=== PATIENT | female | born 1955 | race Caucasian/White ===

== ENCOUNTER 2025-05-31 10:48 | Day surgery (SDC) | payer MEDICARE, OTHER, SELFPAY ==
--- NOTE | 2025-05-24 15:22 | PAT.ANESEVAL ---
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 When Was Last Pacemaker Check QUESTION #4 FULL TEXT: You/Your Family Experience fever (hyperthermia) with Anesthesia Last Oral Intake Last Oral intake: Last Oral Intake NPO since Meds taken in AM with sips of water? 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 operator Female Yes 05/24/25 11:53 HX of Motion Sickness No 05/24/25 11:53 HX of N/V After Surgery No 05/24/25 11:53 Non-Smoker Yes 05/24/25 11:53 Duration of Surgery greater Yes 05/24/25 11:53 than 60 minutes Number of Risk Factors 3 05/24/25 11:53 PONV Score Moderate Risk 05/24/25 11:53 Height & Weight Height & Weight: Anesthesia: Height & Weight Height 5 ft 3 in 03/30/25 13:28 Respiratory Assessment Respiratory Assessment - preservative filler machine operator: Respiratory Tract Infection Hx - preservative filler machine operator Hx Respiratory Tract Infection No 05/24/25 11:53 STOP Sleep Apnea STOP Sleep Apnea - preservative filler machine operator: STOP Sleep Apnea - preservative filler machine operator Hx Hypertension No 05/24/25 11:53 Hx Sleep Apnea Yes 05/24/25 11:53 CPAP Yes: NOT WORN FOR MANY YRS 05/24/25 11:53 PER PATIENT BIPAP No 05/24/25 11:53 Do you snore loudly (louder than talking or can be heard Do you often feel tired/ fatigued/ sleepy during daytime? Has anyone observed you stop breathing during sleep? STOP Results Positive 05/24/25 11:53 QUESTION #5 FULL TEXT : Do you snore loudly (louder than talking or can be heard through closed doors)? 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 Specify any problems Hx of Preganancy in last 3 No 05/24/25 11:53 Months Nurse Filling Out Transfusion DSCHRIBER 05/24/25 11:53 & Questions: Date: 05/24/25 05/24/25 11:53 Time: 11:56 05/24/25 11:53 Patient unable to answer at this time (ie. 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 filler machine operator: /Reproductive Hx- preservative filler machine operator Hx Now No 05/24/25 11:53 Gestational Age (in weeks): EDC: Hx Hx Para Hx Section SAB No 05/24/25 11:53 PFSH Medical History (Updated 05/24/25 @ 12:03 by Nika Burnette) Loss of hearing Wears glasses Post-menopausal Cancer Depression Anxiety Bladder disease High cholesterol Seizures History of ulceration Gastric reflux Non-smoker CPAP (continuous positive airway pressure) dependence Shortness of breath on exertion Kidney tumor Lung tumor Arthritis Home Medications ?Medication ?Instructions ?Recorded ?Last Taken ?Type apple cider vinegar 500 mg tablet 2,400 mg PO BID 10/21/23 Unknown History ascorbate calcium (vitamin C) 500 500 mg PO BID 10/21/23 Unknown History mg tablet biotin 10,000 mcg chewable tablet 500 mcg PO BID 10/21/23 Unknown History (Hair, Skin and Nails (biotin)) dandelion root 525 mg capsule 525 mg PO BID 10/21/23 Unknown History fluoxetine 10 mg capsule 40 mg PO QHS 10/21/23 Unknown History hydrocortisone 1 % topical cream 1 applic topical BID PRN skin 10/21/23 Unknown History (Anti-Itch (hydrocortisone)) irritation levetiracetam 500 mg tablet 500 mg PO DAILY 10/21/23 Unknown History levetiracetam 750 mg tablet 750 mg PO QHS 10/21/23 Unknown History lorazepam 0.5 mg tablet 0.5 mg PO DAILY 10/21/23 Unknown History magnesium 250 mg tablet 500 mg PO DAILY 10/21/23 Unknown History methenamine hippurate 1 gram tablet 1 g PO BID 10/21/23 Unknown History omega-3 fatty acids-fish oil 360 1 cap PO DAILY 10/21/23 Unknown History mg-1,200 mg capsule (Fish Oil) risankizumab-rzaa 150 mg/mL 150 mg subcut Q12W 10/21/23 Unknown History subcutaneous pen injector (Skyrizi) rosuvastatin 20 mg tablet 20 mg PO QHS 10/21/23 Unknown History sodium chloride 0.65 % nasal spray 2 spray intranasal Q2H PRN nasal 10/21/23 Unknown History aerosol ([place] Saline) congestion cholecalciferol (vitamin D3) 50 50 mcg PO BID 05/24/25 Unknown History mcg (2,000 unit) capsule (Vitamin D3) lorazepam 0.5 mg tablet 1 mg PO QHS 05/24/25 Unknown History pantoprazole 40 mg tablet,delayed 40 mg PO DAILY 05/24/25 Unknown History release phenytoin 50 mg chewable tablet 100 mg PO DAILY 05/24/25 Unknown History phenytoin 50 mg chewable tablet 200 mg PO QHS 05/24/25 Unknown History phenytoin sodium extended 100 mg 100 mg PO DAILY 05/24/25 Unknown History capsule potassium chloride 20 mEq 20 meq PO BID 05/24/25 Unknown History tablet,extended release(part/cryst) (Klor-Con M) Allergy/AdvReac Type Severity Reaction Status Date / Time ciprofloxacin AdvReac Mild Upset Verified 05/24/25 11:42 Stomach clarithromycin (From Biaxin) AdvReac Mild Upset Verified 05/24/25 11:42 Stomach doxycycline AdvReac Mild Upset Verified 05/24/25 11:42 Stomach Family History Other Anxiety Arthritis Asthma Cancer Depression Diabetes Epilepsy Psychiatric care Seizures Surgical History (Updated 05/24/25 @ 12:03 by Nika Burnette) H/O adenoidectomy Hx of tonsillectomy H/O section H/O: hysterectomy Social History Smoking Status: Never smoker alcohol intake: never substance use type: does not use additional social history: pt denies vaping, pt denies marijuana use, pt denies edibles, pt denies aspirin, denies illegal drugs, denies alcohol use pt uses ibuprofen as needed. Audit: Pertinent Findings Pertinent Findings EKG Perinent findings: May 18, 2025. Sinus rhythm. Marked left axis deviation, consistent with left anterior fascicular block. Recommendation Anesthesia Recommendation Anesthesia recommendation: OPTIMIZED for anesthesia
[2025-05-31] VITALS (15 sets, daily range): BP systolic 113–136; BP diastolic 53–84; PULSE 66–84; RESP 14–18; TEMP 36.3–37.1; O2SAT 90–98; BMI 34.0; BMI 33.8
[2025-05-31] MEDS: Lactated Ringers 1,000 ML 15 ML IV (11:00)
[2025-05-31 11:36] LABS: Partial Thromboplast Time 26.5 Seconds (24.1-36.2)
--- NOTE | 2025-05-31 11:50 | PCM.PRE.AN2 ---
ASA Classification* ASA Classification ASA Classification: 3 Assessment & Plan Anesthesia* Anesthesia Assessment Anesthesia Assessment: Discussed sedation and/or anesthesia options, risks, benefits, and alternatives with patient/parents/legal guardian/POA. Questions invited. The patient/parents/legal guardian/POA seems to understand and agrees to proceed with anesthesia plan. Reviewed the physical assessment, medical history, allergy history and patient home medications list prior to surgery/procedure/anesthetic and documented any changes. Performed airway and anesthesia risk assessments. 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 When Was Last Pacemaker Check QUESTION #4 FULL TEXT: You/Your Family Experience fever (hyperthermia) with Anesthesia Last Oral Intake Last Oral intake: Last Oral Intake NPO since 00:00 05/31/25 11:25 Meds taken in AM with sips of Yes 05/31/25 11:25 water? Meds patient instructed to take am of surgery PONV PONV - industrial energy engineer: PONV - industrial energy engineer Female Yes 05/24/25 11:53 HX of Motion Sickness No 05/24/25 11:53 HX of N/V After Surgery No 05/24/25 11:53 Non-Smoker Yes 05/24/25 11:53 Duration of Surgery greater Yes 05/24/25 11:53 than 60 minutes Number of Risk Factors 3 05/24/25 11:53 PONV Score Moderate Risk 05/24/25 11:53 Height & Weight Height & Weight: Anesthesia: Height & Weight Height 5 ft 3 in 05/31/25 11:25 Weight: 87 kg 05/31/25 11:25 Body Mass Index (BMI) 34.0 05/31/25 11:25 Respiratory Assessment Respiratory Assessment - industrial energy engineer: Respiratory Tract Infection Hx - industrial energy engineer Hx Respiratory Tract Infection No 05/24/25 11:53 STOP Sleep Apnea STOP Sleep Apnea - industrial energy engineer: STOP Sleep Apnea - industrial energy engineer Hx Hypertension No 05/24/25 11:53 Hx Sleep Apnea Yes 05/24/25 11:53 CPAP Yes: NOT WORN FOR MANY YRS 05/24/25 11:53 PER PATIENT BIPAP No 05/24/25 11:53 Do you snore loudly (louder than talking or can be heard Do you often feel tired/ fatigued/ sleepy during daytime? Has anyone observed you stop breathing during sleep? STOP Results Positive 05/24/25 11:53 QUESTION #5 FULL TEXT : Do you snore loudly (louder than talking or can be heard through closed doors)? 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 Specify any problems Hx of Preganancy in last 3 No 05/24/25 11:53 Months Nurse Filling Out Transfusion DSCHRIBER 05/24/25 11:53 & Questions: Date: 05/24/25 05/24/25 11:53 Time: 11:56 05/24/25 11:53 Patient unable to answer at this time (ie. confused, unrespo /Reproduction History /Reproductive History - industrial energy engineer: /Reproductive Hx- industrial energy engineer Hx Now No 05/24/25 11:53 Gestational Age (in weeks): EDC: Hx Hx Para Hx Section SAB No 05/24/25 11:53 Active Medications Active Medications: Current Medications Generic Name Dose Route Start Last Admin Trade Name Freq PRN Reason Stop Dose Admin Lactated Ringer's 1,000 mls @ 15 mls/hr 05/31/25 11:00 IV .Q48H PAT PFSH Medical History (Updated 05/24/25 @ 12:03 by Nika Burnette) Loss of hearing Wears glasses Post-menopausal Cancer Depression Anxiety Bladder disease High cholesterol Seizures History of ulceration Gastric reflux Non-smoker CPAP (continuous positive airway pressure) dependence Shortness of breath on exertion Kidney tumor Lung tumor Arthritis Home Medications ?Medication ?Instructions ?Recorded ?Last Taken ?Type apple cider vinegar 500 mg tablet 2,400 mg PO BID 10/21/23 05/30/25 History ascorbate calcium (vitamin C) 500 500 mg PO BID 10/21/23 05/30/25 History mg tablet biotin 10,000 mcg chewable tablet 500 mcg PO BID 10/21/23 05/30/25 History (Hair, Skin and Nails (biotin)) dandelion root 525 mg capsule 525 mg PO BID 10/21/23 05/30/25 History fluoxetine 10 mg capsule 40 mg PO QHS 10/21/23 05/30/25 History levetiracetam 500 mg tablet 500 mg PO DAILY 10/21/23 05/31/25 History levetiracetam 750 mg tablet 750 mg PO QHS 10/21/23 05/30/25 History lorazepam 0.5 mg tablet 0.5 mg PO DAILY 10/21/23 05/30/25 History magnesium 250 mg tablet 500 mg PO DAILY 10/21/23 Unknown History methenamine hippurate 1 gram tablet 1 g PO BID 10/21/23 05/30/25 History omega-3 fatty acids-fish oil 360 1 cap PO DAILY 10/21/23 05/30/25 History mg-1,200 mg capsule (Fish Oil) risankizumab-rzaa 150 mg/mL 150 mg subcut Q12W 10/21/23 Unknown History subcutaneous pen injector (Skyrizi) rosuvastatin 20 mg tablet 20 mg PO QHS 10/21/23 05/30/25 History sodium chloride 0.65 % nasal spray 2 spray intranasal Q2H PRN nasal 10/21/23 Unknown History aerosol ([place] Saline) congestion cholecalciferol (vitamin D3) 50 50 mcg PO BID 05/24/25 05/30/25 History mcg (2,000 unit) capsule (Vitamin D3) lorazepam 0.5 mg tablet 1 mg PO QHS 05/24/25 05/30/25 History pantoprazole 40 mg tablet,delayed 40 mg PO DAILY 05/24/25 05/30/25 History release phenytoin 50 mg chewable tablet 100 mg PO DAILY 05/24/25 05/31/25 History phenytoin 50 mg chewable tablet 200 mg PO QHS 05/24/25 05/30/25 History phenytoin sodium extended 100 mg 100 mg PO DAILY 05/24/25 05/30/25 History capsule potassium chloride 20 mEq 20 meq PO BID 05/24/25 05/30/25 History tablet,extended release(part/cryst) (Klor-Con M) Allergy/AdvReac Type Severity Reaction Status Date / Time ciprofloxacin AdvReac Mild Upset Verified 05/31/25 11:22 Stomach clarithromycin (From Biaxin) AdvReac Mild Upset Verified 05/31/25 11:22 Stomach doxycycline AdvReac Mild Upset Verified 05/31/25 11:22 Stomach Family History Other Anxiety Arthritis Asthma Cancer Depression Diabetes Epilepsy Psychiatric care Seizures Surgical History (Updated 05/24/25 @ 12:03 by Nika Burnette) H/O adenoidectomy Hx of tonsillectomy H/O section H/O: hysterectomy Social History Smoking Status: Never smoker alcohol intake: never substance use type: does not use additional social history: pt denies vaping, pt denies marijuana use, pt denies edibles, pt denies aspirin, denies illegal drugs, denies alcohol use pt uses ibuprofen as needed. Review of Systems (Anesthesia) ROS Narrative System reviewed and no additional complaints, except as documented.
--- NOTE | 2025-05-31 12:05 | PCM.HP.STD ---
HPI - General HPI Narrative NAHOMY GUTIERREZ, is a 70 F who presents for a panniculectomy Current Encounter (DATE OF SURGERY H&P UPDATE): I saw and examined the patient this morning in pre-operative holding. We discussed risks and benefits of today's surgery and they would like to proceed. NO CHANGE in health history since last seen and evaluated. Ready to proceed with surgery. I reviewed the CT scan from March 2025 I did not see a visible hernia. The read from the CT scan also did not comment on any hernias. [facility] Medical History Loss of hearing Wears glasses Post-menopausal Cancer Depression Anxiety Bladder disease High cholesterol Seizures History of ulceration Gastric reflux Non-smoker CPAP (continuous positive airway pressure) dependence Shortness of breath on exertion Kidney tumor Lung tumor Arthritis Home Medications ?Medication ?Instructions ?Recorded ?Last Taken ?Type apple cider vinegar 500 mg tablet 2,400 mg PO BID 10/21/23 05/30/25 History ascorbate calcium (vitamin C) 500 500 mg PO BID 10/21/23 05/30/25 History mg tablet biotin 10,000 mcg chewable tablet 500 mcg PO BID 10/21/23 05/30/25 History (Hair, Skin and Nails (biotin)) dandelion root 525 mg capsule 525 mg PO BID 10/21/23 05/30/25 History fluoxetine 10 mg capsule 40 mg PO QHS 10/21/23 05/30/25 History levetiracetam 500 mg tablet 500 mg PO DAILY 10/21/23 05/31/25 History levetiracetam 750 mg tablet 750 mg PO QHS 10/21/23 05/30/25 History lorazepam 0.5 mg tablet 0.5 mg PO DAILY 10/21/23 05/30/25 History magnesium 250 mg tablet 500 mg PO DAILY 10/21/23 Unknown History methenamine hippurate 1 gram tablet 1 g PO BID 10/21/23 05/30/25 History omega-3 fatty acids-fish oil 360 1 cap PO DAILY 10/21/23 05/30/25 History mg-1,200 mg capsule (Fish Oil) risankizumab-rzaa 150 mg/mL 150 mg subcut Q12W 10/21/23 Unknown History subcutaneous pen injector (Skyrizi) rosuvastatin 20 mg tablet 20 mg PO QHS 10/21/23 05/30/25 History sodium chloride 0.65 % nasal spray 2 spray intranasal Q2H PRN nasal 10/21/23 Unknown History aerosol ([place] Saline) congestion cholecalciferol (vitamin D3) 50 50 mcg PO BID 05/24/25 05/30/25 History mcg (2,000 unit) capsule (Vitamin D3) lorazepam 0.5 mg tablet 1 mg PO QHS 05/24/25 05/30/25 History pantoprazole 40 mg tablet,delayed 40 mg PO DAILY 05/24/25 05/30/25 History release phenytoin 50 mg chewable tablet 100 mg PO DAILY 05/24/25 05/31/25 History phenytoin 50 mg chewable tablet 200 mg PO QHS 05/24/25 05/30/25 History phenytoin sodium extended 100 mg 100 mg PO DAILY 05/24/25 05/30/25 History capsule potassium chloride 20 mEq 20 meq PO BID 05/24/25 05/30/25 History tablet,extended release(part/cryst) (Klor-Con M) Allergy/AdvReac Type Severity Reaction Status Date / Time ciprofloxacin AdvReac Mild Upset Verified 05/31/25 11:22 Stomach clarithromycin (From Biaxin) AdvReac Mild Upset Verified 05/31/25 11:22 Stomach doxycycline AdvReac Mild Upset Verified 05/31/25 11:22 Stomach Family History Other Anxiety Arthritis Asthma Cancer Depression Diabetes Epilepsy Psychiatric care Seizures Surgical History H/O adenoidectomy Hx of tonsillectomy H/O section H/O: hysterectomy Social History Smoking Status: Never smoker alcohol intake: never substance use type: does not use additional social history: pt denies vaping, pt denies marijuana use, pt denies edibles, pt denies aspirin, denies illegal drugs, denies alcohol use pt uses ibuprofen as needed. 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 There is a right lower lateral abdominal scar from previous kidney surgery. There is an infraumbilical laparotomy scar. No hernias detected upon my examination. Results Lab / Micro Data Labs: Laboratory Results - last 24 hr 05/31/25 11:15: APTT 26.5 Assessment & Plan Assessment/Plan (1) Panniculitis: PLAN: INTERVAL H&P PLAN, DATE OF SURGERY: We will proceed with surgery today. I talked to the patient extensively today in preoperative holding while I marked her. We marked her for a transverse panniculectomy with possible umbilicus transposition, possible vertical component. I talked to her about wound healing problems and potential for staging portions of the procedure as she has a significant deformity and may have severe wound healing complications if too much is resected/it is too tight. She was in agreement with conservative approach. I talked to the patient again today extensively about the risks of surgery, including bleeding, infection, damage to surrounding structures, poor scaring, asymmetry, the anticipated residual skin/fat on the abdomen and persistent deformity, surgical site dehiscence and wound formation, abdominal necrosis, need for wound care, need for repeat operations, failure to obtain the desired result, DVT/PE, and the risks of anesthesia including , including stroke (from low blood pressure/ischemia or clot). The benefits and alternatives of this surgery were also discussed. All of their questions were answered, and they agreed to proceed with surgery.
[2025-05-31] MEDS: Midazolam 2 MG/2 ML Syringe IV (12:17)
[2025-05-31] MEDS: Lidocaine 1% (5 ml sdv) 5 ML Vial IV (12:21)
[2025-05-31] MEDS: Cefazolin 1 GM/5 ML Vial 2 GM IV (12:30)
[2025-05-31] MEDS: Lidocaine 1% /Epi 1:100 (20ml) 20 ML Vial (12:55)
[2025-05-31] MEDS: Bupiv/Epi 0.25% 30 ML Vial (12:55)
[2025-05-31] MEDS: fentaNYL 100 MCG/2 ML Ampul IV (13:14)
[2025-05-31] MEDS: Lactated Ringers 1,000 ML 999 ML IV (15:15)
--- NOTE | 2025-05-31 15:17 | PCM.POST.ANE ---
Anesthesia: Postop Eval I Current Vital Signs Temperature: 97.3 F Pulse Rate: 84 Blood Pressure: 122/56 Respiratory Rate: 16 Pulse Ox: 95 Oxygen Delivery Method: Room Air Assessment Airway patent: Yes Spontaneous unlabored respirations: Yes Mental status: Awake and Calm nausea: No Vomiting: No Anesthesia Complication: No Fluid Hydration Crystalloid volume administer (ml): 2,000 (finishing up last of 2 L per request per Dr. Matthews) Total IV fluid infused: 2,000 Progress Note Anesthesia document: Postop Eval 1 completed: Yes
--- NOTE | 2025-05-31 15:33 | OP.PCM_ITS ---
Operative Report (Standard) Operative Information Date of Procedure: 05/31/25 Pre-Operative Diagnosis: Massive weight loss with large abdominal pannus Post-Operative Diagnosis: Same Surgery/Procedure Performed: Panniculectomy (transverse) advertising photographer: Yes Administrative Assistant Office Manager: Chandrika Paredes Tasks completed by patent legal assistant: Retracting Type of Anesthesia: General/Supplemental (40 cc of a 50-50 mixture of 1% lidocaine with 1-200,000 epinephrine and quarter percent Marcaine with 1-200,000 epinephrine) RN Documented Start/Stop Times: Operation Date: 05/31/25 12:30 Case Time Into Pre-Op 05/31/25 10:57 Anesthesia Start 05/31/25 12:16 Into Room 05/31/25 12:16 Out of Pre-Op 05/31/25 12:16 Procedure Start 05/31/25 12:55 Procedure End 05/31/25 15:04 Anesthesia End 05/31/25 15:11 Out of Room 05/31/25 15:11 Into Recovery 05/31/25 15:16 Procedure Start Time: 12:55 Procedure Stop Time: 15:04 Select all DRAINS/GRAFTS/IMPLANTS that apply: Drains (To 19 Burkinan Chavo drains) Drain details: Tunneled out laterally Estimated Blood Loss: 500 cc Specimen collected: No Description of surgery: Indications: Patient is a delightful 70-year-old female with history of severe rash and irritation in the abdominal region secondary to a large pannus/abdominal apron after massive weight loss. I discussed with her the risks, benefits, and alternatives to the procedure, and she elected to proceed. Procedure details: Patient was clearly identified in preoperative holding and marked. She is taken back to the operating room where she was administered general anesthesia and prepped and draped in sterile fashion. All proper timeouts were performed. 10 blade scalpel was used to incise the skin on the inferior abdomen below the pannus up to the level of the ASIS bilaterally and extending lateral to the ASIS to just beyond the midaxillary line. Bovie electrocautery was used to dissect down to the abdominal wall. Care was taken to preserve fat over the ASIS and the hips, so as to protect the nerves including the lateral femoral cutaneous nerve. Dissection was carried out superiorly along the abdominal wall to the level just below the umbilicus. Any large perforating vessels were tied with silk ties. The pannus was then advanced inferiorly in a safe amount of resection was determined by overlapping it with the lower incision. An ellipse was then designed with a marking pen, and cut with a 10 blade scalpel. Dissection was again taken down with Bovie electrocautery and the ellipse was excised and weighed 9.1 pounds (mass of 4.1 kg). 2 separate 19 [place] Chavo drains were then placed and tunneled out laterally. Wound was irrigated with copious amounts normal saline and Irrisept. Hemostasis was obtained with Bovie electrocautery and thrombin topical agent. Kadie's fascia was then closed with 2-0 Vicryl interrupted deep sutures, and the skin was then closed with 3-0 Monocryl deep dermal sutures followed by 3-0 Monocryl running subcuticular sutures. The drains were holding suction at the end of the case. The umbilicus was kept in position and just moved with the upper abdomen as it was advanced inferiorly (no cuts around the umbilicus). Patient tolerated the procedure well. She was awakened taken the PACU in stable condition. Postoperative plan: Admission for postoperative monitoring. Edwards was removed at the end of the case. CBC in the a.m. and early ambulation tonight around dinnertime to prevent blood clots (SCDs to be on and activated). Anticipate likely discharge in the morning. Surgical Findings: Able to remove 9 pounds of pannus Complications Complications: No
[2025-05-31] MEDS: Lactated Ringers 1,000 ML 75 ML IV (16:25)
--- NOTE | 2025-05-31 18:10 | POSTOPAN2_ITS ---
Anesthesia Postop Eval I Sum Postop Eval Completion status Anesthesia document: Postop Eval 1 completed: Yes Anesthesia Postop Eval I Summary Anesthesia Postop Eval I Summary: Anesthesia Postop Eval I: Assessment Summary Airway patent Yes 05/31/25 15:18 SOLAR PROJECT [email or web address] Spontaneous unlabored Yes 05/31/25 15:18 SOLAR PROJECT [email or web address] respirations Mental status Awake,Calm 05/31/25 15:18 SOLAR PROJECT [email or web address] nausea No 05/31/25 15:18 SOLAR PROJECT MANAGER.[email or web address] Vomiting No 05/31/25 15:18 SOLAR PROJECT [email or web address] Anesthesia Postop Eval I: Fluid Summary Crystalloid volume administer 2,000 - finishing 05/31/25 15:18 SOLAR PROJECT [email or web address] (ml) up last of 2 L per request per Dr. Matthews Colloids volume administered ( ml) Blood Product volume administered (ml) Total IV fluid infused 2,000 05/31/25 15:18 SOLAR PROJECT MANAGER.[email or web address] Anesthesia Postop Eval I: Summary Notes Anesthesia Complication No 05/31/25 15:18 SOLAR PROJECT MANAGER.KEYANA Anesthesia Complication Comment: Post-operative progress note Anesthesia: Postop Eval II Evaluation Mental status: Awake Pain Level: 0 nausea: No Vomiting: No Complications Anesthesia Complication: No
--- NOTE | 2025-05-31 18:10 | PCM.POSTANE2 ---
Anesthesia Postop Eval I Sum Postop Eval Completion status Anesthesia document: Postop Eval 1 completed: Yes Anesthesia Postop Eval I Summary Anesthesia Postop Eval I Summary: Anesthesia Postop Eval I: Assessment Summary Airway patent Yes 05/31/25 15:18 ELEMENTARY SCHOOL [email or web address] Spontaneous unlabored Yes 05/31/25 15:18 ELEMENTARY SCHOOL COUNSELOR.[email or web address] respirations Mental status Awake,Calm 05/31/25 15:18 ELEMENTARY SCHOOL [email or web address] nausea No 05/31/25 15:18 ELEMENTARY SCHOOL COUNSELOR.[email or web address] Vomiting No 05/31/25 15:18 ELEMENTARY SCHOOL COUNSELOR.[email or web address] Anesthesia Postop Eval I: Fluid Summary Crystalloid volume administer 2,000 - finishing 05/31/25 15:18 ELEMENTARY SCHOOL [email or web address] (ml) up last of 2 L per request per Dr. Matthews Colloids volume administered ( ml) Blood Product volume administered (ml) Total IV fluid infused 2,000 05/31/25 15:18 ELEMENTARY SCHOOL COUNSELOR.KEYANA Anesthesia Postop Eval I: Summary Notes Anesthesia Complication No 05/31/25 15:18 ELEMENTARY SCHOOL COUNSELOR.[email or web address] Anesthesia Complication Comment: Post-operative progress note Anesthesia: Postop Eval II Evaluation Mental status: Awake Pain Level: 0 nausea: No Vomiting: No Complications Anesthesia Complication: No
[2025-05-31] MEDS: Cefazolin 2 GM in 0.9% Normal Saline (100mL Bag) 100 ML IV (21:53)
[2025-05-31] MEDS: Phenytoin Na 100 MG Capsule 200 MG PO (21:53)
[2025-06-01] MEDS: Lactated Ringers 1,000 ML 75 ML IV ×2 (03:37→16:13)
[2025-06-01 04:32] VITALS: BP 132/50; PULSE 90; RESP 16; TEMP 37.1; O2SAT 95
[2025-06-01] MEDS: Cefazolin 2 GM in 0.9% Normal Saline (100mL Bag) 100 ML IV ×3 (05:40→21:42)
[2025-06-01 07:31] LABS: Hematocrit 37.3 % (37-47); Hemoglobin 12.4 g/dL (12.0-15.0); Immature Granulocytes Count 0.040 X10^3/uL (0.0-0.0); Mean Corp Hgb Conc 33.2 g/dL (32-36); Mean Corpuscular Volume 95.4 fL (81-99); Mean Platelet Vol. 11.0 fl (6.2-12.0); NRBC Flagged by Analyzer 0 % (0-5); POSITIVE DIFFERENTIAL YES; Platelet Count 110 K/mm3 (150-450); RBC Distribution Width CV 12.7 % (11.6-14.6); RBC Distribution Width SD 43.9 fl (35.1-43.9); Red Blood Count 3.91 M/mm3 (4.2-5.4); White Blood Count 12.3 K/mm3 (4.4-11.0)
[2025-06-01 07:59] VITALS: BP 112/59; PULSE 88; RESP 17; TEMP 36.9; O2SAT 95
[2025-06-01 08:08] LABS: Anion Gap 9 (5-15); BUN 17 mg/dL (4-19); BUN/Creat Ratio 18.5 RATIO (10-20); Calcium,Total 8.3 mg/dL (7.6-11.0); Carbon Dioxide 22.9 mmol/L (21.0-32.0); Chloride 106 mmol/L (98-108); Estimated Creatinine Clearance 59.84 ml/min (50-250); Glucose 113 mg/dL (70-99); Potassium 4.4 mmol/L (3.3-5.1)
--- NOTE | 2025-06-01 08:09 | PN.SURG_ITS ---
Subjective Subjective Doing well overall this AM. No N/v She has significant pain while walking, requiring pain medications. Objective Data Objective Data Vital Signs: Vital Signs Temp Pulse Resp BP Pulse Ox O2 Del Method 98.4 F 88 17 112/59 L 95 Room Air 06/01/25 07:59 06/01/25 07:59 06/01/25 07:59 06/01/25 07:59 06/01/25 07:59 06/01/25 07:59 Oxygen Delivery Method Room Air Weight: 191 lb 1.326 oz Body Mass Index (BMI) 33.8 Intake & Output: Intake and Output for Last 24 Hours 05/30/25 05/31/25 06/01/25 23:59 23:59 23:59 Intake Total 869.75 / 869.75 950 / 950 Output Total 750 / 750 40 / 40 Balance 119.75 / 119.75 910 / 910 Lab / Micro Data 06/01/25 06:29 06/01/25 06:29 Labs: Laboratory Results - last 24 hr 05/31/25 11:15: APTT 26.5 06/01/25 06:29: WBC 12.3 H, RBC 3.91 L, Hgb 12.4, Hct 37.3, MCV 95.4, MCH 31.7, MCHC 33.2, RDW Std Deviation 43.9, RDW Coeff of [place]ito 12.7, Plt Count 110 L, MPV 11.0, Immature Gran % (Auto) 0.300, Neut % (Auto) 87.9 H, Lymph % (Auto) 3.0 L, [place] % (Auto) 8.1, Eos % (Auto) 0.6, Baso % (Auto) 0.1, Absolute Neuts (auto) 10.8 H, Absolute Lymphs (auto) 0.37 L, Nucleated RBC % 0, Sodium 138, Potassium 4.4, Chloride 106, Carbon Dioxide 22.9, Anion Gap 9, BUN 17, Creatinine 0.90, Estim Creat Clear Calc 59.84, Est GFR (MDRD) Non-Af 68, BUN/Creatinine Ratio 18.5, Glucose 113 H, Calcium 8.3 Physical Exam Narrative Abdomen: Soft, no hematoma. Incision c/d/i. KELLY drains are SS. Const alert and oriented x3 Resp normal respiratory effort Resp Narrative: 1250 in IS this morning Extremity Extremity Narrative: No calf swelling SCDs on and activated Assessment & Plan Assessment/Plan (1) S/P panniculectomy: PLAN: Continue medications for pain control Plan for PT today Continue to ambulate with assistance Likely DC tomorrow (needs to move better before DC and have better pain control)
[2025-06-01] MEDS: Phenytoin Na 100 MG Capsule PO (10:35)
--- NOTE | 2025-06-01 11:08 | CASEMGMT ---
Addendum entered by Terri Hall 06/01/25 11:23: The Bow Making Machine Operator AD rack card was provided to the patient. Patient was informed she can call the hospital and receive assist with completing this information. Original Note: Social Work SW spoke with the patient in her room regarding LW/POA. Patient reported she has POA and LW paperwork but she cannot find it. Patient plans on looking for it. Patient was provided with blank LW/POA paperwork in case she can find it. RAMSES Batista
[2025-06-01 14:01] VITALS: BP 108/52; PULSE 88; RESP 17; TEMP 36.9; O2SAT 97
[2025-06-01 20:49] VITALS: BP 107/50; PULSE 74; RESP 16; TEMP 36.4; O2SAT 97
[2025-06-01] MEDS: Phenytoin Na 100 MG Capsule 200 MG PO (21:42)
[2025-06-02 02:11] VITALS: BP 117/60; PULSE 71; RESP 18; TEMP 36.4; O2SAT 99
[2025-06-02] MEDS: Cefazolin 2 GM in 0.9% Normal Saline (100mL Bag) 100 ML IV (05:37)
[2025-06-02] MEDS: Lactated Ringers 1,000 ML 75 ML IV (05:38)
--- NOTE | 2025-06-02 07:29 | DS.PCM_ITS ---
Providers Primary Care Physician: Jamison Squires FOLDING MACHINE SETTER-C Reason For Visit: Romina panniculectomy Diagnosis Discharge Diagnosis (1) S/P panniculectomy: Status: Acute Code(s): Z98.890 - Other specified postprocedural states Plan: Continue medications for pain control Plan for PT today Continue to ambulate with assistance Likely DC tomorrow (needs to move better before DC and have better pain control) Medications at Discharge Home Medications apple cider vinegar 500 mg tablet 2,400 mg PO BID 10/21/23 ascorbate calcium (vitamin C) 500 mg tablet 500 mg PO BID 10/21/23 biotin 10,000 mcg chewable tablet (Hair, Skin and Nails (biotin)) 500 mcg PO BID 10/21/23 dandelion root 525 mg capsule 525 mg PO BID 10/21/23 fluoxetine 10 mg capsule 40 mg PO QHS 10/21/23 levetiracetam 500 mg tablet 500 mg PO DAILY 10/21/23 levetiracetam 750 mg tablet 750 mg PO QHS 10/21/23 lorazepam 0.5 mg tablet 0.5 mg PO DAILY 10/21/23 magnesium 250 mg tablet 500 mg PO DAILY 10/21/23 methenamine hippurate 1 gram tablet 1 g PO BID 10/21/23 omega-3 fatty acids-fish oil 360 mg-1,200 mg capsule (Fish Oil) 1 cap PO DAILY 10/21/23 risankizumab-rzaa 150 mg/mL subcutaneous pen injector (Skyrizi) 150 mg subcut Q12W 10/21/23 rosuvastatin 20 mg tablet 20 mg PO QHS 10/21/23 sodium chloride 0.65 % nasal spray aerosol ([place] Saline) 2 spray intranasal Q2H PRN nasal congestion 10/21/23 cholecalciferol (vitamin D3) 50 mcg (2,000 unit) capsule (Vitamin D3) 50 mcg PO BID 05/24/25 lorazepam 0.5 mg tablet 1 mg PO QHS 05/24/25 pantoprazole 40 mg tablet,delayed release 40 mg PO DAILY 05/24/25 phenytoin 50 mg chewable tablet 100 mg PO DAILY 05/24/25 phenytoin 50 mg chewable tablet 200 mg PO QHS 05/24/25 phenytoin sodium extended 100 mg capsule 100 mg PO DAILY 05/24/25 potassium chloride 20 mEq tablet,extended release(part/cryst) (Klor-Con M) 20 meq PO BID 05/24/25 oxycodone 5 mg tablet 5 mg PO Q12H PRN pain 5 days #10 tabs 06/02/25 Hospital Course Summary of Care Provided Hospital Course: Patient underwent panniculectomy on 31 May 2025. Did well post-operatively. PT recommended could go home with assistance on POD1. Patient lives at home with . Feels comfortable going home. Pain was controlled with PO pain medications. Hgb 12 on POD 1, stable VS, afebrile. On the date of discharge (POD2), patient reported adequate pain control and was comfortable taking care of her drains and going home. She was passing flatus and eating/drinking well (no N/V). Physical Exam Narrative Consistently 1500cc on IS. Normal respiratory effort Abdomen: Soft, incision c/d/i. No hematoma. Drains SS. Appropriate output. Extremities: SCDs on and activated, no swelling in the legs/thighs Weight / BMI Weight Weight: 191 lb 1.326 oz Body Mass Index (BMI) 33.8 ABG / Lab / Microbiology Data 06/01/25 06:29 06/01/25 06:29 Laboratory: Laboratory Results - last 24 hr 06/01/25 06:29: WBC 12.3 H, RBC 3.91 L, Hgb 12.4, Hct 37.3, MCV 95.4, MCH 31.7, MCHC 33.2, RDW Std Deviation 43.9, RDW Coeff of [place]ito 12.7, Plt Count 110 L, MPV 11.0, Immature Gran % (Auto) 0.300, Neut % (Auto) 87.9 H, Lymph % (Auto) 3.0 L, [place] % (Auto) 8.1, Eos % (Auto) 0.6, Baso % (Auto) 0.1, Absolute Neuts (auto) 10.8 H, Absolute Lymphs (auto) 0.37 L, Nucleated RBC % 0, Sodium 138, Potassium 4.4, Chloride 106, Carbon Dioxide 22.9, Anion Gap 9, BUN 17, Creatinine 0.90, Estim Creat Clear Calc 59.84, Est GFR (MDRD) Non-Af 68, BUN/Creatinine Ratio 18.5, Glucose 113 H, Calcium 8.3 D/C Instructions DC O2, CPAP, BIPAP Needs Home O2 Discharge instructions: No Meaningful Use Info Meaningful Use Meaningful Use Diagnoses (Choose all that apply): None applicable Discharge Plan Admission Attending Provider: Yusuf Matthews Primary Care Provider: Jamison Squires Instructions Additional Instructions / Restrictions: Operations Performed: panniculectomy Instructions for My Care at Home or Healthcare Facility The following instructions will help you know what to expect in the days following surgery. These are general instructions. Your surgeon and therapist may give you special instructions, which vary to some degree based on your specific procedure -- follow those as directed. Do not, however, hesitate to call if you have any questions or concerns. Splint Care/Dressing Care/Wound Care * Dressings - You may have a dressing over the operative site. * Use the binder to hold pads on as needed or when ambulating for comfort * Avoid smoking or other tobacco products. Smoking tobacco impairs wound healing and increases the risks of post-operative complications. * Tape over your incisions (if present) will fall off on its own Activities Make sure to walk frequently to prevent blood clots * For the first 4 weeks after surgery, try to balance your activity, allowing time for rest. * Avoid lifting, pushing, or pulling anything over 5 pounds. * Do not drive or operate heavy machinery within 24 hrs of surgery or while taking narcotic pain medication.? Pain Control/Medications * If you received an anesthetic block, your hand or arm may be numb for several hours. You will be discharged to home with medications, including an oral pain medication (analgesic). Rest and elevation are still one of the most important factors for pain control. Take your pain medication as needed, but do not wait for the pain to become out of control. * For severe pain, you may take prescription pain medication as directed, but please note that this may also contain Tylenol (e.g. Percocet). Do not take more than 4000mg of Tylenol (acetaminophen) from all sources daily.? * Pain medication may cause some lethargy, nausea, and or constipation. You should not drive/operate dangerous machinery while taking these medications. If these or other symptoms become significantly problematic, please your surgeon's office. * If prescribed oral antibiotics (Keflex, Clindamycin, or others), please take prescription for full duration as instructed. You should not have any pills remaining once completed (refills are written for your convenience should the course need to be extended, but generally they are not required). Diet (what I can eat): Resume normal diet Follow up * You will be seen (most likely) 1 to 2 weeks after surgery depending on the procedure. Follow-up appointment reminders:? (A list of any scheduled appointments is at the end of this document)? At your earliest convenience, please call [phone] to confirm/schedule a follow-up appointment with me in clinic. When to call your surgeon: * If any signs of surgical site infection develop: redness, pus, pain, increased swelling or foul odor at the incision site, fever, cold and clammy skin, or confusion. * Consistent temperature above 101?F (38.3?C). * The affected area gets swollen or much more painful. * You have excessive bleeding from surgical site (soaking through). If you experience difficulty breathing and/or shortness of breath, seek immediate medical attention. If experiencing any of the above complications or if you have any questions, call [phone] Drain Care:? A drain has been placed during surgery in order to prevent the accumulation of fluids beneath your skin. The drain decreases the chance of infection and helps in the healing process. The nursing staff will instruct you and your family on the care and recording of drainage. ? * You may shower with them. Let soap and water run down over drains, rinse and pat dry with clean towel. Reinforce with gauze or ABD pad around drain site if leaking occurs around the drain; this is not unusual.?Hold drains in your hand or attach to lanyard (or string) around your neck with safety pin so they do not hang from your body (the tension on your skin may cause them to be pulled out) while your are showering. * The drains are attached to you with suture. If your drain(s) falls out accidentally, place a clean piece of gauze over the drain site with tape and discard your drain.? * If your drain bulb loses suction or your drain has migrated out from the drain site, do not attempt to push the drain back into your skin. Cover the area with dry gauze. You may be asked by your surgeon to place a piece of semi occlusive dressing (tegaderm) over the drain site to keep the site clean and drain in place until you are seen in the office.? * When you are wearing clothes, attach drains to your clothes in a place where there is minimal/no tension on the insertion site to your skin.? * You should empty the drainage and record the output at least 2 times per day, or when the drainage fills the bulb almost chcf. Please keep daily amounts of drainage separate for each drain for a 24-hour period (for example drain #1 put out 40 mL for 24 hours).? * Strip your drains daily as shown to you by your nurse prior to discharge to avoid them from becoming clogged:? * Wash your hands. * Strip tubing three times a day (more often if there are a lot of blood clots). * Grasp tubing close to body with one hand and pull toward body. With other hand grasp tubing below the first hand. Using an alcohol swab, pinch tubing tightly, sliding fingers down tubing, away from body. * Repeat 2 or 3 times. Be sure drainage is flowing into bulbs. * Measure the drainage in the bulb by either using the calibrations on the bulb or by emptying the Bulb into small measuring container 3 times a day (more often if there is a lot of drainage or they feel heavy) Open small lid on top of bulb. Pour drainage into container. Squeeze bulb and hold while replacing small lid. Bulb should be collapsed to be effective. Pin bulb to clothing so the weight will not pull on the insertion site. * Measure drainage and record amount each time you empty the bulbs. Hold container at eye level to read the numbers on the side of the container. Read the numbers in the ml column. Record amount of drainage on chart. * Record your drain output daily and bring this record with you to your next follow up appointment. Drains will typically be removed in the clinic when output is less than 30 mL/24 hours per drain over 2 consecutive days. For drain removal appointment, please call your doctors office directly to schedule.? Location: Drain #1 Drain #2 Drain #3 Drain #4 0 0 0 AM Noon PM AM Noon PM AM Noon PM AM Noon PM Date: Total (daily) 0 0 0 AM Noon PM AM Noon PM AM Noon PM AM Noon PM Date: Total (daily) 0 0 0 AM Noon PM AM Noon PM AM Noon PM AM Noon PM Date: Total (daily) 0 0 0 AM Noon PM AM Noon PM AM Noon PM AM Noon PM Date: Total (daily) 0 0 0 AM Noon PM AM Noon PM AM Noon PM AM Noon PM Date: Total (daily) 0 0 0 AM Noon PM AM Noon PM AM Noon PM AM Noon PM Date: Total (daily) 0 0 0 AM Noon PM AM Noon PM AM Noon PM AM Noon PM Date: Total (daily) 0 0 0 AM Noon PM AM Noon PM AM Noon PM AM Noon PM Date: Total (daily) 0 0 0 AM Noon PM AM Noon PM AM Noon PM AM Noon PM Date: Total (daily) 0 0 0 AM Noon PM AM Noon PM AM Noon PM AM Noon PM Date: Total (daily) 0 0 0 AM Noon PM AM Noon PM AM Noon PM AM Noon PM Date: Total (daily) 0 0 0 AM Noon PM AM Noon PM AM Noon PM AM Noon PM Date: Total (daily) 0 0 0 AM Noon PM AM Noon PM AM Noon PM AM Noon PM Date: Total (daily) 0 0 0 AM Noon PM AM Noon PM AM Noon PM AM Noon PM Date: Total (daily) 0 0 0 AM Noon PM AM Noon PM AM Noon PM AM Noon PM Date: Total (daily) 0 0 0 Print Language: Grenadian Discharge Orders/Prescriptions Prescriptions: New oxycodone 5 mg tablet 5 mg PO Q12H PRN (Reason: pain) 5 Days Qty: 10 0RF No Action fluoxetine 10 mg capsule 40 mg PO QHS lorazepam 0.5 mg tablet 0.5 mg PO DAILY levetiracetam 500 mg tablet 500 mg PO DAILY levetiracetam 750 mg tablet 750 mg PO QHS rosuvastatin 20 mg tablet 20 mg PO QHS methenamine hippurate 1 gram tablet 1 g PO BID Skyrizi 150 mg/mL pen injector 150 mg subcut Q12W ascorbate calcium (vitamin C) 500 mg tablet 500 mg PO BID Hair, Skin and Nails (biotin) 10,000 mcg tablet,chewable 500 mcg PO BID apple cider vinegar 500 mg tablet 2,400 mg PO BID magnesium 250 mg tablet 500 mg PO DAILY omega-3 fatty acids-fish oil [Fish Oil] 360-1,200 mg capsule 1 cap PO DAILY dandelion root 525 mg capsule 525 mg PO BID [place] Saline 0.65 % aerosol,spray 2 spray intranasal Q2H PRN (Reason: nasal congestion) potassium chloride [Klor-Con M20] 20 mEq tablet,ER particles/crystals 20 meq PO BID phenytoin sodium extended 100 mg capsule 100 mg PO DAILY phenytoin 50 mg tablet,chewable 200 mg PO QHS phenytoin 50 mg tablet,chewable 100 mg PO DAILY pantoprazole 40 mg tablet,delayed release (DR/EC) 40 mg PO DAILY lorazepam 0.5 mg tablet 1 mg PO QHS cholecalciferol (vitamin D3) [Vitamin D3] 50 mcg (2,000 unit) capsule 50 mcg PO BID Other Ambulatory Orders: Partial Thromboplast Time (Routine) Timeframe: [id number] Facility: [facility] - Location: Laboratory Ordered By: Dr. Justin Echeverria Referrals / Follow Up: Jamison Squires, FOLDING MACHINE SETTER-C [Primary Care Provider] - Disposition Disposition (needs filled in before D/C Order can be placed): Home, Self Care
[2025-06-02 09:27] VITALS: BP 132/55; PULSE 80; RESP 14; TEMP 37.2; O2SAT 97
--- NOTE | 2025-06-02 09:27 | CASEMGMT ---
Pt has an order for DC placed. Pt's LACE is not populated d/t SDC status. Pt's 6-Click score is 19. PT is not recommending additional therapy, see note. RN CM to the pt room at this time. Pt is sitting up in the chair at this time. Pt states that she lives at home with her and that she feels comfortable taking care of her drains at home. See DC Summary. Pt states that she feels safe returning home today and denies any additional needs, questions, or concerns. Pts RN updated.
[2025-06-02] MEDS: Phenytoin Na 100 MG Capsule PO (09:34)
== END 2025-06-02 10:54 | disposition home or self-care (01) ==
LOC: SDC 10:52 → AC 10:57 → MS3 11:59
PROVIDERS: Anesthesiology; Referring Provider Surgery Plastic and Reconstructive Surgery; Visit Provider Surgery Plastic and Reconstructive Surgery
PROC: 0JB80ZZ Excision of Abdomen Subcutaneous Tissue and Fascia, Open Approach (ICD-10-PCS; CPT 15830; principal; 2025-05-31 12:15)
DX: L98.7 Excessive and redundant skin and subcutaneous tissue (principal); E65 Localized adiposity; M79.3 Panniculitis, unspecified
CPT/HCPCS: 15830; 00802; 36415; 80048; 85025; 85730; 94668; 97162; 97530; J2405